=== PATIENT | female | born 1985 | race Caucasian/White ===

== ENCOUNTER 2021-02-05 20:39 | Emergency (ER) | payer OTHER ==
[~2021-02-05] VITALS: Ht 160 cm; Wt 70.3 kg
[2021-02-05 21:04] VITALS: BP 129/54
[2021-02-05] MEDS ORDERED: PRILOSEC OTC20 MG PO (21:08)
[2021-02-05] MEDS ORDERED: XANAX 0.25 MG0.25 MG PO (21:08)
[2021-02-05] MEDS ORDERED: ADVIL200 M1 PO (21:09)
[2021-02-05] MEDS ORDERED: IBUPROFEN 600600 M1 PO ×2 (21:41→21:47)
[2021-02-05] MEDS ORDERED: NORCO5 PO ×2 (21:41→21:47)
== END 2021-02-05 22:15 | disposition home or self-care (01) ==
LOC: M.ERS 20:39
DX: S72.132 Displaced apophyseal fracture of left femur (principal); M25.552 Pain in left hip; Z87.442 Personal history of urinary calculi; W18.39XA Other fall on same level, initial encounter; Y93.89 Activity, other specified; Y92.89 Other specified places as the place of occurrence of the external cause; Y99.8 Other external cause status